=== PATIENT | female | born 1970 | race Two or more races ===

== ENCOUNTER 2021-12-19 00:23 | Emergency (ER) | payer OTHER ==
[~2021-12-19] VITALS: Ht 162.6 cm; Wt 70.0 kg
[2021-12-19] MEDS ORDERED: ONDANSETRON HCL 4 MG/2 ML VIAL IV ONE (01:00)
[2021-12-19] MEDS ORDERED: MORPHINE SULFATE INJ 2 MG/ml SYRG IV ONE (01:00)
[2021-12-19 01:41] LABS: Albumin 3.6 g/dL (3.4-5.0); BUN/Creatinine Ratio 14.5; Calcium 8.5 mg/dL (8.5-10.1); Potassium 4.2 mmol/L (3.5-5.1)
[2021-12-19 01:42] LABS: Hematocrit 39.8 % (36.0-46.0); Hemoglobin 13.3 g/dL (12.2-16.2); Mean Corpuscular Hemoglobin 31.4 pg (28.0-32.0); Mean Corpuscular Hgb Conc. 33.3 g/dL (32.0-36.0); Mean Corpuscular Volume 94.3 fL (80.0-100.0); Red Blood Cells 4.22 10^6/uL (4.0-5.20); Red Cell Distribution Width 12.9 % (11.8-14.3); White Blood Cell 10.4 10^3/uL (4.4-10.8)
[2021-12-19 01:44] LABS: Bilirubin, Total 0.3 mg/dL (0.2-1.0); Total Protein 6.9 g/dL (6.4-8.2)
[2021-12-19 02:09] LABS: Band Neutrophils % (manual) 0; Basophils % (manual) 0 (0.0-2.0); Blast Cells 0; Metamyelocytes % 0; Myelocytes % 0; Promyelocytes % 0; Reactive Lymphocytes 0
[2021-12-19 02:25] LABS: Eosinophils % (manual) 17 (0-7); Lymphocytes % (manual) 21 (10.0-50.0); Monocytes % (manual) 8 (0-12)
[2021-12-19 03:00] LABS: Urine Bacteria NONE SEEN /hpf (None Seen); Urine Blood Negative /uL (Negative); Urine Specific Gravity 1.012 (1.001-1.035); Urine WBC 2 /hpf (0 - 5)
[2021-12-19] MEDS ORDERED: HYDROmorphone HCL 2 MG/ML VL/or syr IV ONE (03:15)
[2021-12-19] MEDS ORDERED: cefTRIAXone 1GM/50ML D5W 50 ML IV ONE (11:15)
[2021-12-19 17:11] VITALS: BP 111/70
== END 2021-12-19 11:08 | disposition short-term general hospital (02) ==
LOC: EDBD 00:27 → ER 00:27
DX: R10.9 Unspecified abdominal pain (principal); R10.2 Pelvic and perineal pain; Z20.822 Contact with and (suspected) exposure to COVID-19
CPT/HCPCS: 36415; 74176; 80053; 81001; 83690; 84484; 84702; 85007; 85027; 87426; 93005; 96365; 96375; 99285; J0696; J1170; J2270; J2405; J7050